=== PATIENT | male | born 2000 | race Hispanic/Latino ===

== ENCOUNTER → 2023-02-24 | Outpatient (REF) | payer MEDICARE | LOC: EDSTATUS 15:00 → RESP 15:01 | PROVIDERS: ATTEND Internal Medicine Critical Care Medicine | DX: R06.02 Shortness of breath (principal); G40.309 Generalized idiopathic epilepsy and epileptic syndromes, not intractable, without status epilepticus; I10 Essential (primary) hypertension; G47.33 Obstructive sleep apnea (adult) (pediatric); G47.00 Insomnia, unspecified; E66.9 Obesity, unspecified | CPT/HCPCS: 71046; 94010; 94727; 94729 ==